=== PATIENT | female | born 1980 | race Caucasian/White ===

== ENCOUNTER 2024-09-08 14:24 | Emergency (ER) | payer MEDICARE, OTHER, SELFPAY ==
[2024-09-08 14:34] VITALS: BP 156/94
[2024-09-08 15:09] LABS: Urine Albumin Negative (Neg - Trace); Urine Bilirubin Negative (Negative); Urine Character Clear (Clear); Urine Color Yellow; Urine Glucose Negative (Negative); Urine Ketone Negative (Negative); Urine Leukocyte Negative (Negative); Urine Nitrite Negative (Negative); Urine Occult Blood Negative (Negative); Urine Urobilinogen Negative (Neg - 1+)
[2024-09-08 15:12] LABS: % Basophils 0.6 % (0-2); % Eosinophils 3.7 % (0-6); % Immature Granulocytes 0.2 % (0-0.5); % Lymphocytes 31.4 % (20.5-51.1); % Monocytes 7.1 % (1.7-9.3); Absolute Eosinophils 0.2 10^3/uL (0-0.7); Absolute Monocytes 0.5 10^3/uL (0.1-0.6); Absolute Neutrophils 3.7 10^3/uL (1.4-6.5); Hematocrit 43.7 % (37.0-47.0); Hemoglobin 15.1 g/dL (12.0-16.0); Mean Corp Hgb Conc. 34.6 g/dL (33.0-37.0); Mean Corpuscular Hgb 28.2 pg (27.0-31.0); Mean Corpuscular Volume 81.5 fL (81.0-99.0); Mean Platelet Volume 9.2 fL (7.4-10.4); Nucleated Red Blood Cells % 0 %; Platelet Count 228 10^3/uL (130-400); Red Blood Cell Count 5.36 10^6/uL (4.20-5.40); Red Cell Dist. Width 12.3 % (11.5-14.5); White Blood Cell Count 6.5 10^3/uL (4.8-10.8)
[2024-09-08 15:17] LABS: HCG, Serum Qualitative Screen Negative
[2024-09-08 15:19] LABS: ALT (SGPT) 23 U/L (0-35); AST (SGOT) 30 U/L (14-36); Albumin 4.4 g/dl (3.5-5.0); Alkaline Phosphatase 58 U/L (38-126); Blood Urea Nitrogen 7 mg/dl (7-17); Calcium 10.6 mg/dl (8.4-10.2); Carbon Dioxide 29 mmol/L (22-30); Chloride 102 mmol/L (98-107); Glucose 110 mg/dl (70-99); Lipase 29 U/L (23-300); Sodium 139 mmol/L (135-145); Total Bilirubin 1.1 mg/dl (0.2-1.3); Total Protein 7.4 g/dl (6.3-8.2); eGFR > 60.00
--- NOTE | 2024-09-08 16:14 | ED.GENMED ---
History of Present Illness
General
Chief Complaint: Abdominal Pain
Time Seen by Provider: 09/08/24 16:00
History of Present Illness
History of Present Illness:
44-year-old female with history of gastroparesis presents to the emergency department for evaluation of left upper abdominal pain associated with nausea and fever over the past 24 to 40 hours. States she is not been able to eat or drink secondary
to symptoms. No vomiting or diarrhea. No back pain, dysuria, or lower abdominal pain. Did take ibuprofen prior to arrival
Review of Systems
Review of Systems
Allergies reviewed?: Yes
All Other Systems: ROS reviewed and negative except as documented in HPI and ROS
Phy Exam
Physical Exam
Physical Exam:
GEN: Well appearing, NAD, WDWN
HEENT: Oral mucosa moist, no scleral icterus
Cardiac: Regular rate
Lung: No respiratory distress, no tachypnea
Abdomen: Soft, mild tenderness to the left lateral abdomen, no rigidity
MSK: No gross deformity or injuries
Skin: Good color, no pallor or jaundice, no rashes
Neuro: AO x3, moves all extremities freely
Psych: Calm, cooperative
Course
Orders/Labs/Results
Orders:
Orders
09/08/24 14:38
Test Result ONCE
09/08/24 14:53
Complete Blood Count/With Diff Urgent
Comprehensive Metabolic Panel Urgent
HCG, Serum Qualitative Screen Urgent
Comment: Notify provider if positive test present
Lipase Urgent
Urinalysis Reflex To Culture Urgent
Date Specimen was Collected: 09/08/24
Time Specimen was Collected: 14:38
09/08/24 16:19
CT Abd/Pel (IV only)-DH only Urgent
Comment:
Reason For Exam: LUQ pain fever
0.9% Sodium Chloride 500 ml [Nss] 500 ml IV BOLUS
Ketorolac [Toradol] 15 mg IV NOW STA
Abnormal Lab Results
09/08/24
14:53
Glucose 110 H mg/dl
(70-99)
Calcium 10.6 H mg/dl
(8.4-10.2)
09/08/24 14:53
09/08/24 14:53
Vital Signs
Initial and Last Documented VS:
Initial Vital Signs
Temp Pulse Resp BP Pulse Ox
98.7 F 74 16 156/94 98
09/08/24 14:34 09/08/24 14:34 09/08/24 14:34 09/08/24 14:34 09/08/24 14:34
Last Documented Vital Signs
Temp Pulse Resp BP Pulse Ox
98.7 F 61 16 157/83 98
09/08/24 14:34 09/08/24 17:11 09/08/24 17:11 09/08/24 17:11 09/08/24 17:15
MDM/Problems Addressed
MDM/Problems Addressed:
Unclear etiology to patient's symptoms, recommend PPI and H2 neelam
*Critical Care Note
Total Time (30-74mins, 75-104mins- exclusive of procedures): Not Applicable
ED Attending Note
-
Portions of this chart may have been created with voice recognition software.� Occasional wrong word or��sound alike� substitutions may have occurred due to the inherent limitations of voice recognition software.
Discharge Plan
Departure
Patient Disposition: Home (Routine Discharge)
Date of Disposition: 09/08/24
Time of Disposition: 19:24
Patient with high blood pressure during this ER visit?: No
Discharge Problem:
Abdominal pain
Instructions: Abdominal Pain
Prescriptions:
No Action
cyclobenzaprine [Flexeril] 10 MG tablet
10 mg PO TID
buspirone 10 MG tablet
10 mg PO BID
methadone 10 MG/1 ML concentrate
15 mg PO TID
albuterol sulfate 1 PUFF HFA aerosol inhaler
1 puff inhalation R QID PRN (Reason: SOB)
multivitamin 1 EACH capsule
1 PO DAILY
pantoprazole [Protonix] 20 mg tablet,delayed release (DR/EC)
20 mg PO DAILY Qty: 14 0RF
Referrals:
Magdiel Call MD [Family Provider] -
Activity Restrictions/Additional Instructions:
Try famotidine twice daily for 7 days
Interventions
Interventions:
*Risk Screen - Suicide Last Done: 09/08/24 14:34
*General Assessment Last Done: 09/08/24 16:58
*Neglect/Abuse Screening Last Done: 09/08/24 14:34
ED- Fall Risk Assessment Last Done: 09/08/24 16:58
*ED COVID-19 Vaccine History Last Done: 09/08/24 16:58
*Nursing Disposition Last Done: 09/08/24 19:39
RV-Giwgwf-Emahdcamdu Assessment Last Done: 09/08/24 16:58
Discharge Date and Time
Discharge Date/Time: 09/08/24 19:40
Print Language: UZBEK
[2024-09-08 16:58] VITALS: BMI 24.2
[2024-09-08 17:11] VITALS: BP 157/83
[2024-09-08] MEDS: NSS 500 IV (17:19)
[2024-09-08] MEDS: TORADOL 15 MG IV (17:19)
== END 2024-09-08 19:40 | disposition home or self-care (01) ==
LOC: EMR 14:24
PROVIDERS: Emergency Medicine; EMERGENCY PHYSICIAN Emergency Medicine; FAMILY PHYSICIAN Internal Medicine Endocrinology, Diabetes & Metabolism
DX: R10.12 Left upper quadrant pain (principal); R11.0 Nausea; Z87.19 Personal history of other diseases of the digestive system
CPT/HCPCS: 96374; 96361; 99284; 74177; 80053; 81003; 83690; 84703; 85025; Q9967

== ENCOUNTER 2025-04-08 20:58 | Emergency (ER) | payer MEDICARE, OTHER, SELFPAY ==
[2025-04-08 21:15] VITALS: BP 143/96
[2025-04-08 21:51] LABS: Hematocrit 44.9 % (37.0-47.0); Hemoglobin 15.3 g/dL (12.0-16.0); Mean Corp Hgb Conc. 34.1 g/dL (33.0-37.0); Mean Corpuscular Volume 80.0 fL (81.0-99.0); Nucleated Red Blood Cells % 0 %; Platelet Count 261 10^3/uL (130-400); Red Cell Dist. Width 12.1 % (11.5-14.5)
[2025-04-08 22:06] LABS: ALT (SGPT) 15 U/L (0-35); AST (SGOT) 25 U/L (14-36); Albumin 4.7 g/dl (3.5-5.0); Alkaline Phosphatase 64 U/L (38-126); Blood Urea Nitrogen 13 mg/dl (7-17); Calcium 9.6 mg/dl (8.4-10.2); Carbon Dioxide 26 mmol/L (22-30); Chloride 104 mmol/L (98-107); Glucose 103 mg/dl (70-99); Potassium 4.6 mmol/L (3.5-5.1); Sodium 136 mmol/L (135-145); Total Protein 7.9 g/dl (6.3-8.2); eGFR > 60.00
[2025-04-08 22:09] LABS: Troponin I < 0.012 ng/ml
[2025-04-08 23:25] VITALS: BP 139/99
[2025-04-08 23:29] VITALS: BMI 24.6
--- NOTE | 2025-04-08 23:47 | ED.GENMED ---
History of Present Illness
General
Chief Complaint: Chest Pain
Source: patient
Exam Limitations: none
Time Seen by Provider: 04/08/25 23:33
History of Present Illness
History of Present Illness:
45yoF with a history of asthma, gastroparesis, hypothyroidism, and avascular necrosis presenting with her mother for evaluation of chest pain. Patient reports central and left-sided chest discomfort over the past 1 to 2 weeks. Pain is worse with
deep breathing and feels like she is suffocating. She also has been having a persistent cough. She is mainly worried about her lungs. She denies any trauma, fevers, leg swelling, calf pain. No prior history of heart disease or VTE.
Phy Exam
General Physical Exam
General Presentation: well appearing and no apparent distress
General Skin: warm and dry
General Habitus: normal
General Mental: alert
ENT Exam
ENT Exam: normocephalic
Cardiovascular Exam
Cardiovascular Exam: regular rate/rhythm and no murmur
Pulmonary Exam
Pulmonary Exam: lungs clear, no respiratory distress, no rales, no crackles, no rhonchi, no wheezing and other (Mild tenderness to anterior chest wall. No skin changes.)
Neurological Exam
Neurological Exam: alert
[place] Coma Scale
Eye Opening: Spontaneous
Verbal Response: Oriented
Motor Response: Obeys Commands
GCS Total Score: 15
Skin Exam
Skin Exam: normal color and warm/dry
Psychiatric Exam
Psychiatric Exam: normal mood/affect
Scores
Heart Score for Chest Pain Patients
STEMI patient?: No
History: Slightly or Non-Suspicious
ECG: Nonspecific Repolarization
Age: </= 45 years
Risk Factors: No Risk Factors
Troponin: </= Normal Limit
Heart Score for Chest Pain Patients: 1
Heart Score Risk: 2.5% MACE over next 6 weeks
Course
Orders/Labs/Results
Orders:
Orders
04/08/25 21:17
Electrocardiogram (*1) Urgent
Reason for Study: Chest Pain
Cardiac Monitoring- Treatment ONCE
EKG- Treatment ONCE
IV Insert/Care/Rem.- Treatment PRN
O2 Therapy [RESP] Urgent
Titrate/Wean O2 to maintain O2 sat greater than (%): 90
Special Instructions: Maintain sats >/=90%
Pulse Ox/spot Check [RESP] Urgent
Quantity: 1
Special Instructions: ON ROOM AIR
04/08/25 21:29
Complete Blood Count/With Diff Urgent
Comprehensive Metabolic Panel Urgent
Troponin I Urgent
04/09/25 00:19
D-Dimer Urgent
04/09/25 00:29
Ketorolac [Toradol] 15 mg IV NOW STA
04/09/25 00:54
CR Chest - 2 Views Urgent
Comment:
Reason For Exam: CP
Abnormal Lab Results
04/08/25
21:29
RBC 5.61 H 10^6/uL
(4.20-5.40)
MCV 80.0 L fL
(81.0-99.0)
Glucose 103 H mg/dl
(70-99)
Total Bilirubin 1.5 H mg/dl
(0.2-1.3)
04/08/25 21:29
04/08/25 21:29
Vital Signs
Initial and Last Documented VS:
Initial Vital Signs
Temp Pulse Resp BP Pulse Ox
99.0 F 78 18 143/96 98
04/08/25 21:15 04/08/25 21:15 04/08/25 21:15 04/08/25 21:15 04/08/25 21:15
Last Documented Vital Signs
Temp Pulse Resp BP Pulse Ox
99.0 F 69 15 139/99 99
04/08/25 21:15 04/08/25 23:25 04/08/25 23:25 04/08/25 23:25 04/08/25 23:47
MDM/Problems Addressed
Differential Diagnosis Includes:
45yoF here with chest pain x 1-2 weeks. Worse with deep breathing. Also c/o cough. VSS. She is well-appearing no acute distress. There is mild chest wall tenderness on exam. Lungs clear to auscultation without rales or wheezing. Differential
diagnosis includes but is not limited to: Musculoskeletal, pleurisy, pneumonia, pneumothorax, PE
Initial ED plan: Workup initiated in triage. EKG shows normal sinus rhythm with nonspecific T wave changes. Troponin within normal limits. Will check D-dimer and chest x-ray versus CT depending on D-dimer results. IV Toradol for pain.
*Pulse Oximetry
SaO2: 99
Oxygen Mode of Delivery: Room air
Patient hypoxic: no (98%)
*EKG
Interpreted by ED Provider?: Yes
EKG Intrepretation Date: 04/08/25
Heart Rate: 66
Rate: normal
Rhythm: sinus
[place]: normal axis
Interval: normal interval
QRS Pattern: normal QRS
Ischemia: T-wave inversion (V3-V4)
*Critical Care Note
Total Time (30-74mins, 75-104mins- exclusive of procedures): Not Applicable
Update Note
Update Note:
D-dimer normal making PE very unlikely. Chest x-ray obtained which appears normal per my interpretation. Suspect musculoskeletal pain from coughing. Supportive care discussed. Advised follow-up with PCP and ED return precautions reviewed.
Patient discharged in stable condition
ED Attending Note
-
Portions of this chart may have been created with voice recognition software.� Occasional wrong word or��sound alike� substitutions may have occurred due to the inherent limitations of voice recognition software.
Discharge Plan
Departure
Patient Disposition: Home (Routine Discharge)
Date of Disposition: 04/09/25
Time of Disposition: 01:54
Patient with high blood pressure during this ER visit?: No
Discharge Problem:
Chest pain
Instructions: Chest Pain PCP Follow Up
Prescriptions:
No Action
cyclobenzaprine [Flexeril] 10 MG tablet
10 mg PO TID
buspirone 10 MG tablet
10 mg PO BID
methadone 10 MG/1 ML concentrate
15 mg PO TID
albuterol sulfate 1 PUFF HFA aerosol inhaler
1 puff inhalation R QID PRN (Reason: SOB)
multivitamin 1 EACH capsule
1 PO DAILY
pantoprazole [Protonix] 20 mg tablet,delayed release (DR/EC)
20 mg PO DAILY Qty: 14 0RF
Referrals:
Maia Call CRNP [Family Provider, Family Practice]
Activity Restrictions/Additional Instructions:
Apply heat to affected area. Take ibuprofen as needed for pain.
Please follow-up with your family doctor in 2 to 3 days. Return to the ER with any new or worsening symptoms.
Interventions
Interventions:
*Risk Screen - Suicide Last Done: 04/08/25 21:15
*Neglect/Abuse Screening Last Done: 04/08/25 21:15
*ED- Fall Risk Assessment Last Done: 04/09/25 02:06
*ED COVID-19 Vaccine History Last Done: 04/09/25 02:06
*Nursing Disposition Last Done: 04/09/25 02:06
ED- Cardiac Assessment Last Done: 04/09/25 02:06
Discharge Date and Time
Discharge Date/Time: 04/09/25 02:08
Print Language: BELARUSIAN
[2025-04-09] MEDS: TORADOL 15 MG IV (00:34)
[2025-04-09 00:40] LABS: D-Dimer < 0.27 ug/mlFEU (0.00-0.50)
== END 2025-04-09 02:08 | disposition home or self-care (01) ==
LOC: EMR 20:58
PROVIDERS: Physician Assistant; Student in an Organized Health Care Education/Training Program; EMERGENCY PHYSICIAN Emergency Medicine; FAMILY PHYSICIAN Registered Nurse
DX: R07.9 Chest pain, unspecified (principal); R05.9 Cough, unspecified; E03.9 Hypothyroidism, unspecified; J45.909 Unspecified asthma, uncomplicated
CPT/HCPCS: 99285; 96374; 71046; 80053; 84484; 85025; 85379; 93005

== ENCOUNTER 2025-07-12 21:29 | Emergency (ER) | payer MEDICARE, OTHER, SELFPAY ==
[2025-07-12 21:33] VITALS: BP 140/92
[2025-07-13 00:28] VITALS: BMI 22.3
[2025-07-13 00:30] VITALS: BP 128/77
[2025-07-13] MEDS: TORADOL 15 MG IM (00:51)
--- NOTE | 2025-07-13 02:20 | ED.GENMED ---
History of Present Illness
General
Chief Complaint: Back Pain
Source: patient and family
Exam Limitations: none
Time Seen by Provider: 07/13/25 00:27
Nursing documentation reviewed up to this point in time: agreed with
History of Present Illness
History of Present Illness:
45-year-old female presenting to the emergency department today with concerns of low back pain mainly to the right side rating down the right leg. Does have a long history of back issues has had spinal fusion in the past. She claims this symptom
started after she got an MRI for her chronic hip pain. She was in an awkward position for an extended period of time and since then has had discomfort to her right back. Denies any fevers numbness weakness, trouble with bowel movements or
urination.
Review of Systems
Review of Systems
Allergies reviewed?: Yes
All Other Systems: ROS reviewed and negative except as documented in HPI and ROS
Phy Exam
Physical Exam
Physical Exam:
GENERAL: Alert , in no apparent distress
EYE: pupils equal and reactive
NECK: Supple, no significant adenopathy.
ENT: o/p clr, mmm.
CARDIAC: Regular rate and rhythm .
LUNGS: Clear breath sounds bilaterally, no acute respiratory distress, no wheezes/rales/rhonchi
ABDOMEN: Soft, without focal tenderness, no r/g, no cvat
NEUROLOGICAL: Alert and oriented, no focal neuro deficits
SKIN: Warm and dry, skin intact.
MUSCULOSKELETAL: No edema, well perfused.
PSYCH: Normal and appropriate interaction.
Course
Orders/Labs/Results
Orders:
Orders
07/13/25 00:46
Ketorolac [Toradol] 15 mg IM NOW STA
Lumbar Spine, 2 or 3 View [CR Lumbar Spine 2 Or 3 Views] Urgent
Comment:
Reason For Exam: low back pain
Vital Signs
Initial and Last Documented VS:
Initial Vital Signs
Temp Pulse Resp BP Pulse Ox
98.5 F 88 16 140/92 98
07/12/25 21:33 07/12/25 21:33 07/12/25 21:33 07/12/25 21:33 07/12/25 21:33
Last Documented Vital Signs
Temp Pulse Resp BP Pulse Ox
99.1 F 58 18 128/77 98
07/13/25 00:30 07/13/25 00:30 07/13/25 00:30 07/13/25 00:30 07/13/25 00:30
MDM/Problems Addressed
MDM/Problems Addressed:
45-year-old female presenting to the emergency department today with concerns of right low back pain over the past week. Seem to occur after she was in an awkward position in an MRI machine 1 week ago. Here vital signs are normal with no red flag
symptoms of back pain no fevers numbness weakness no neurologic symptoms. X-ray showing previous hardware but no emergent findings. She was given Toradol with improvement of symptoms otherwise stable for discharge advised for close outpatient
follow-up. Return precautions given.
*Pulse Oximetry
SaO2: 98
Oxygen Mode of Delivery: Room air
Patient hypoxic: no (98)
*Critical Care Note
Total Time (30-74mins, 75-104mins- exclusive of procedures): Not Applicable
ED Attending Note
-
Portions of this chart may have been created with voice recognition software.� Occasional wrong word or��sound alike� substitutions may have occurred due to the inherent limitations of voice recognition software.
Discharge Plan
Departure
Patient Disposition: Home (Routine Discharge)
Date of Disposition: 07/13/25
Time of Disposition: 02:22
Patient with high blood pressure during this ER visit?: No
Condition: Good
Covid-19: Not Applicable
Discharge Problem:
Low back pain
Instructions: Low Back Pain (DC)
Prescriptions:
New
meloxicam 15 mg tablet
15 mg PO DAILY 7 Days Qty: 7 0RF
No Action
cyclobenzaprine [Flexeril] 10 MG tablet
10 mg PO TID
buspirone 10 MG tablet
10 mg PO BID
methadone 10 MG/1 ML concentrate
15 mg PO TID
albuterol sulfate 1 PUFF HFA aerosol inhaler
1 puff inhalation R QID PRN (Reason: SOB)
multivitamin 1 EACH capsule
1 PO DAILY
pantoprazole [Protonix] 20 mg tablet,delayed release (DR/EC)
20 mg PO DAILY Qty: 14 0RF
Referrals:
Maia Call CRNP [Family Provider, Family Practice]
Activity Restrictions/Additional Instructions:
You came to the emergency department today with concerns of back pain. Here you had an x-ray without signs of emergent process. Please take prescribed medication and follow-up closely with PT and your pain management doctor. Return for any
worsening, new or concerning symptoms.
Interventions
Interventions:
*Risk Screen - Suicide Last Done: 07/12/25 21:33
*General Assessment Last Done: 07/12/25 21:33
*Neglect/Abuse Screening Last Done: 07/13/25 00:29
*ED- Fall Risk Assessment Last Done: 07/12/25 21:33
*ED COVID-19 Vaccine History Last Done: 07/12/25 21:33
*ED Influenza Vaccine History Last Done: 07/12/25 21:33
ED-Musculoskeletal Assessment Last Done: 07/13/25 00:32
Discharge Date and Time
Print Language: ARGENTINE
== END 2025-07-13 02:40 | disposition home or self-care (01) ==
LOC: EMR 21:29
PROVIDERS: EMERGENCY PHYSICIAN Emergency Medicine; FAMILY PHYSICIAN Registered Nurse
DX: M54.50 Low back pain, unspecified (principal); G89.29 Other chronic pain; Z98.1 Arthrodesis status
CPT/HCPCS: 96372; 99284; 72100